=== PATIENT | female | born 1955 | race Caucasian/White ===

== ENCOUNTER 2023-07-31 08:07 | Outpatient (AMB) | payer OTHER, SELFPAY ==
--- NOTE | 2023-07-31 08:34 | AM.OFFWIN_ITS ---
Intake Vital Signs 07/31/23 08:35 Height 5 ft Weight 125 lb 2 oz BMI 24.4 BP 130/70 Blood Pressure Location Rt brachial Position Sitting Pulse 80 Pulse Source Pulse Oximeter Temp 97.9 F Temp Source Oral Pulse Oximetry (%) 98 Oxygen Delivery Method Room Air Intake Visit Reasons: EP, left eye discharge, cough [phone] Intake Note: pt is here for c.o sinus congestion, left eye discharge, cough with green phelm Patient Tobacco Use Status: Never used Tobacco Allergies No Known Allergies [No Known Allergies*] Allergy (Verified 07/31/23 09:18) Medication List - Last Reconciled 07/31/23 by CHEYENNE Conteh alendronate 70 mg PO QWEEK Do you need a note to return to daycare/school/sports/work: Yes HPI HPI Comments History of Present Illness Details Patient is a 67-year-old female in today for a sick visit. She states that 4 days prior to the appointment she started to develop cough, chest congestion, headache, sore throat. She denies any chest pain, nausea, vomiting, diarrhea, shortness of breath or dizziness. In addition her left eye has been red with excessive mucus production to the point where when she wakes up in the morning she feels like her eye is stuck shut and she needs to wash it. Denies having any vision changes, denies any trauma to the area. Eye stain for corneal abrasion in office was negative. [facility] Social History Patient Tobacco Use Status: Never used Tobacco Review of Systems Const Details: Constitutional : No Weight loss, No Fever, No Chills, Admits some Fatigue, No Malaise ENT/Mouth : Admits sore throat, No Rhinorrhea Eyes: No Eye Pain, Admits left eye redness and mucus Cardiovascular : No Chest Pain, No SOB, No Dyspnea on Exertion, No Orthopnea, No Edema, No Palpitations Respiratory : Admits Cough, Admits Sputum, No Wheezing Gastrointestinal : No Nausea, No Vomiting, No Diarrhea, No Constipation, No abdominal Pain, No Hematochezia, No Melena Genitourinary : No Dysuria, No Urinary Frequency, No Hematuria, Musculoskeletal : No joint pain, No Myalgias, No Joint Swelling Neuro : No Weakness, No Numbness, No Dizziness, No Headache Psych : No Anxiety/Panic, No Depression All other systems reviewed and are negative Physical Exam Vital Signs: Last Vital Signs Temp 97.9 F 07/31/23 08:35 Pulse 80 07/31/23 08:35 BP 130/70 07/31/23 08:35 Pulse Ox 98 07/31/23 08:35 Oxygen Delivery Method Room Air 07/31/23 08:35 BMI result Body Mass Index 24.4 Vital signs reviewed and stable Const Other: Appearance: Alert.? Oriented X3.? No acute distress.? Head: Normocephalic, atraumatic, no step-offs or deformities Eyes: Pupils equal, round and reactive to light.?Left eye erythema with discharge. ENT: Pharynx erythema. ? Neck: Normal inspection.? Neck supple.?Full ROM. CVS: Normal heart rate and rhythm.? Pulses normal.? Respiratory: No respiratory distress.? Breath sounds normal.? Neuro: Oriented X 3.? No motor deficit.? No sensory deficit. CN 2-12 intact In office eye stain test for corneal abrasion negative. Assessment & Plan Assessment & Plan (1) Conjunctivitis: Comment: Patient will be given erythromycin ointment to be taken as prescribed as directed. Patient has been educated on signs of worsening symptoms and when to report back to the walk-in or when to present to the emergency room. Patient is agreeable to this plan. Code(s): H10.9 - Unspecified conjunctivitis Qualifiers: Acute conjunctivitis type: unspecified Conjunctivitis type: acute Laterality: left Qualified Code(s): H10.32 - Unspecified acute conjunctivitis, left eye Plan: Patient should follow-up with PCP. (2) Cough: Comment: Patient will be given prednisone and benzonatate a to be taken as prescribed. Patient has been educated on signs of worsening symptoms and when to report back to the walk-in or when to present to the emergency room. Code(s): R05.9 - Cough, unspecified Qualifiers: Cough type: acute Qualified Code(s): R05.1 - Acute cough Plan: Patient should follow-up with PCP. Plan Take your medications as prescribed. If you were prescribed antibiotics today, it is important that you take your medication to their entirety, do not skip any doses, do not finish them early. Follow-up with your primary care provider this week. Return to the emergency department with new or worsening symptoms. Such as fevers, chills, chest pain, shortness of breath, nausea, vomiting, dizziness, headache, vision changes, lethargy In case of emergency call 911 Medications: New prednisone 20 mg PO DAILY 5 tabs 0RF erythromycin 0.5 inches ophthalmic (eye) TID 3.5 grams 0RF benzonatate 100 mg PO BID PRN 30 caps 0RF cough Coding Level of Care Code Est Pt Level 4 (69120) Diagnoses Acute conjunctivitis of left eye, unspecified acute conjunctivitis type H10.32 Acute conjunctivitis type: unspecified Conjunctivitis type: acute Laterality: left Acute cough R05.1 Cough type: acute
[2023-07-31 08:35] VITALS: BP 130/70; PULSE 80; TEMP 36.6; O2SAT 98; BMI 24.4
== END 2023-07-31 09:21 | disposition home or self-care (01) ==
PROVIDERS: PCP Nurse Practitioner Women's Health; Visit Provider Nurse Practitioner Primary Care
DX: H10.32 Unspecified acute conjunctivitis, left eye (principal); R05.1 Acute cough
CPT/HCPCS: 99214

== ENCOUNTER 2024-12-16 08:00 | Outpatient (AMB) | payer OTHER, SELFPAY ==
[2024-12-16 08:05] VITALS: BP 124/80; PULSE 90; TEMP 36.8; O2SAT 95
--- NOTE | 2024-12-16 08:05 | AM.OFFWIN_ITS ---
Intake Vital Signs 12/16/24 08:05 Weight 126 lb 2 oz BP 124/80 Blood Pressure Location Lt brachial Position Sitting Pulse 90 Pulse Source Pulse Oximeter Temp 98.2 F Temp Source Oral Pulse Oximetry (%) 95 Oxygen Delivery Method Room Air Intake Visit Reasons: EP Cold symptoms Intake Note: Patient here for cough, fatigue, congestion and headache that started last Sunday. Patient Tobacco Use Status: Never used Tobacco Allergies No Known Allergies [No Known Allergies*] Allergy (Verified 12/16/24 08:09) Do you need a note to return to daycare/school/sports/work: Yes HPI HPI Comments History of Present Illness Details This is a 69-year-old female with no stated past medical history presenting for evaluation of cough, congestion and fatigue that she has had since last week. Patient states her symptoms started with a frontal headache followed by nasal congestion and cough. Patient denies having any fevers, chills, otalgia, pharyngitis, chest pain or shortness for breath. Patient has not taken any medication for treatment of her discomfort. Patient states her mother recently fell and is a mcc which has been very stressful for her. [facility] Social History Patient Tobacco Use Status: Never used Tobacco Review of Systems Const All systems reviewed & are unremarkable except as noted in HPI and below Reports no additional complaints, Denies chills, Denies fatigue, Denies fever(s) and Reports headache(s) Eyes Reports no additional complaints ENT Reports no additional complaints, Denies facial pain, Reports headache(s), Denies hoarseness, Reports nasal congestion, Denies nasal discharge, Denies odynophagia, Denies post nasal drip, Denies sinus pressure and Denies sore throat Card Reports no additional complaints, Denies dyspnea and Denies dyspnea on exertion Resp Reports cough, Denies dyspnea and Denies dyspnea on exertion GI Reports no additional complaints and Denies odynophagia Reports no additional complaints Musc Reports no additional complaints Skin/Breast Reports system reviewed and no additional complaints, except as documented Neuro Reports no additional complaints and Reports headache(s) Psych Reports no additional complaints Endo Reports no additional complaints and Denies fatigue Jaiden/Lymph Reports no additional complaints Aller/Immun Reports no additional complaints Physical Exam Vital Signs: Last Vital Signs Temp 98.2 F 12/16/24 08:05 Pulse 90 12/16/24 08:05 BP 124/80 12/16/24 08:05 Pulse Ox 95 12/16/24 08:05 Oxygen Delivery Method Room Air 12/16/24 08:05 Patient is afebrile. Const General: cooperative, healthy appearing, comfortable, no acute distress, well developed, alert, awake and Physically active Nutritional Appearance: average body habitus Orientation/consciousness: patient oriented x3 Limitations: no limitations HEENT Head: Yes normal to inspection and Yes atraumatic Ears: hearing grossly normal bilaterally, external ears normal, TM normal on the right, left TM abnormal (erythematous, no fluid level appreciated), EAC's normal and mastoids normal General nose exam: Normal external nose present Face and sinus: Yes normal facial exam and Yes sinuses nontender Mouth: Normal oral and palatal mucosa present and moist mucous membranes Throat: Yes posterior oropharynx normal Eyes General: appearance normal, both eyes and all related structures Neck Lymphatic: no lymphadenopathy noted Resp Effort & Inspection: normal respiratory effort and able to speak in complete sentences Auscultation: clear to auscultation bilaterally Cardio Rate: regular rate Rhythm: regular rhythm Skin General skin exam: no rashes or lesions noted Neuro General: patient oriented x3 Psych Appearance: grossly normal Mental Status: mental status grossly normal Insight: Good insight present (Psych) Judgement: Good judgement present (Psych) Assessment & Plan Assessment & Plan (1) Acute upper respiratory infection: Code(s): J06.9 - Acute upper respiratory infection, unspecified Plan: Increase clear fluids daily, Mucinex OTC daily. (2) Otitis media of left ear: Code(s): H66.92 - Otitis media, unspecified, left ear Qualifiers: Otitis media type: unspecified Qualified Code(s): H66.92 - Otitis media, unspecified, left ear Plan: Amoxicillin 500 mg t.i.d. x7 days, ibuprofen or Tylenol as needed. Medications: New amoxicillin 500 mg PO TID 21 caps 0RF Coding Level of Care Code Est Pt Level 3 (55014) Diagnoses Acute upper respiratory infection J06.9 Left otitis media, unspecified otitis media type H66.92 Otitis media type: unspecified Time Spent (min) 20
== END 2024-12-16 08:34 | disposition home or self-care (01) ==
PROVIDERS: PCP Internal Medicine; Visit Provider Physician Assistant
DX: J06.9 Acute upper respiratory infection, unspecified (principal); H66.92 Otitis media, unspecified, left ear

== ENCOUNTER → 2024-12-16 08:00 | Outpatient (BNVA) | payer OTHER, SELFPAY | PROVIDERS: PCP Internal Medicine; Visit Provider Physician Assistant | DX: Z13.89 Encounter for screening for other disorder (principal) ==